=== PATIENT | female | born 1985 | race Caucasian/White ===

== ENCOUNTER 2019-12-26 08:01 | Day surgery (SDC) | payer OTHER, SELFPAY ==
[~2019-12-26] VITALS: Ht 157.5 cm; Wt 70.3 kg
[2019-12-26] MEDS ORDERED: VASOPRESSIN 20 UNITS/ML VIAL IV ONE (08:59)
[2019-12-26 09:00] LABS: HCG,QUAL RESULT NEGATIVE (NEGATIVE)
[2019-12-26] MEDS ORDERED: LR 1,000 ML IV SCH (09:24)
[2019-12-26] MEDS ORDERED: MEPERIDINE HCL/PF 25 MG/ML DISP.SYRIN IVP PRN (09:30)
[2019-12-26] MEDS ORDERED: MORPHINE 4 MG/ML INJ. SYRINGE IVP PRN (09:30)
[2019-12-26] MEDS ORDERED: ONDANSETRON HCL 4 MG/2 ML VIAL IVP PRN ×2 (09:30→11:30)
[2019-12-26] MEDS ORDERED: METOCLOPRAMIDE HCL 10 MG/2 ML VIAL IVP PRN (09:30)
[2019-12-26] MEDS ORDERED: KETOROLAC TROMETHAMINE 30 MG VIAL IVP PRN (09:30)
[2019-12-26] MEDS ORDERED: HYDROmorphone 1 MG INJ. 1 MG/ML AMPUL IVP PRN (09:30)
[2019-12-26] MEDS ORDERED: DEXAMETHASONE SOD PHOSPHATE 4 MG/ML VIAL IVP ONE (09:34)
[2019-12-26] MEDS ORDERED: SUCCINYLCHOLINE CHLORIDE 20 MG/ML(QUELICIN) IVP ONE (09:34)
[2019-12-26] MEDS ORDERED: NS IRRIG SOLN 1000 ML IR ONE (09:34)
[2019-12-26] MEDS ORDERED: LIDOCAINE/EPI 1% 1:100000 20 ML VIAL INJ ONE (09:34)
[2019-12-26] MEDS ORDERED: WATER FOR IRRIGATION,STERILE 1,000 ML IRRIG.SOLN IR ONE (09:34)
[2019-12-26] MEDS ORDERED: ROCURONIUM BROMIDE 10 MG/ML (ZEMURON) IV ONE (09:34)
[2019-12-26] MEDS ORDERED: NS 100 ML BAG IV ONE (09:34)
[2019-12-26] MEDS ORDERED: PROPOFOL 200MG/ 20ML VIAL (DIPRIVAN) IV ONE (09:34)
[2019-12-26] MEDS ORDERED: CEFAZOLIN 2 GM IVPB PREMIX 50 ML IV ONE (09:34)
[2019-12-26] MEDS ORDERED: SEVOFLURANE 15 MIN GAS INH ONE (09:34)
[2019-12-26] MEDS ORDERED: LR 1,000 ML IV.SOLN IV ONE (09:34)
[2019-12-26] MEDS ORDERED: HYDROcodone/ACETAMIN 5-325 MG TAB (NORCO/ VICODIN) PO PRN (11:30)
[2019-12-26] MEDS ORDERED: OXYCODONE/ACETAMINOPHEN 5-325 TABLET PO PRN ×2 (11:30)
[2019-12-26 14:29] VITALS: BP_SYST 107
== END 2019-12-26 14:20 | disposition home or self-care (01) ==
LOC: SDS 08:01
PROVIDERS: ATTEND Specialist
DX: D25.1 Intramural leiomyoma of uterus (principal); N92.1 Excessive and frequent menstruation with irregular cycle; D50.0 Iron deficiency anemia secondary to blood loss (chronic); Z79.899 Other long term (current) drug therapy
CPT/HCPCS: 58545; 84703; 88305; C1727; J0330; J0690; J1100; J2704; J3490; J7120; U0003; E0190